=== PATIENT | male | born 1980 | race Caucasian/White ===

== ENCOUNTER → 2023-06-21 | Outpatient (CLI) | payer OTHER ==
--- NOTE | 2023-06-21 11:27 | CA ---
Exercise Nuclear Stress Test Report Name: Mario Patel Exam Date: 06/21/2023 09:43 Exam Location: [facility] Ht (in): 70 Wt (lb): 240 BSA: 2.26 Ordering Phys: Vy Guzman DO Referring Phys: Taylor Jade PAC Technologist: Tay Dempsey Age: 43 Gender: M : 1980 Procedure CPT: Indications: I20.9 ANGINA PECTORIS, UNSPECIFIED; R06.09 ICD-10 Codes: Patient History: Chest pain and shortness of breath Medications: Meds past 24 hrs: Pretest Chest Pain: STRESS TEST Cj Protocol Exercise Duration (min:sec): 10:[address] Depressions (mm): Angina Score: Ramírez Score: Resting HR (bpm): 67 Peak HR (bpm): 168 Resting BP (mmHg): 122 / 73 Peak BP (mmHg): 170 / 58 MPHR: 179 Target HR: 152 % MPHR: 94 METS: 12.1 Total Dose: Peak Dose: Atropine: Double Product: 18820 BP Response: Stress Termination: Reached target heart rate Stress Symptoms: No chest pain or symptoms Stress Summary: ECG ANALYSIS Resting ECG: Normal sinus rhythm normal axis normal intervals Stress ECG: Patient exercised on Cj protocol for 10 and half minutes achieving 85% of predicted maximal heart rate without chest pain at peak exercise there was 1 and have millimeter horizontal ST segment depression noted CONCLUSIONS Good exercise tolerance Moderately abnormal EKG part of the stress test Dr. Barak Jo MD (Electronically Signed) Final Date: 21 June 2023 11:26
--- NOTE | 2023-06-21 12:13 | NM ---
EXAMINATION TYPE: NM stress cardiolite complete DATE OF EXAM: 06/21/2023 COMPARISON: NONE CLINICAL INDICATION: Male, 43 years old with history of I20.9 ANGINA PECTORIS, UNSPECIFIED; R06.09; TECHNIQUE: After the intravenous administration of 9.8 mCi Tc 99m Sestamibi - Rest images obtained 4 5 minutes post injection. The patient exercised using a FIORELLA protocol and 1 minute prior to peak e xercise was injected with 25.0 mCi Tc 99m Sestamibi - Stress images obtained 30 minutes post injectio n. FINDINGS: Targeted heart rate was achieved during performance of the study. Review of stress and rest SPECT lizzy ges demonstrates no distinct perfusion abnormality. Gated analysis shows normal wall motion with an estimated left ventricular ejection fraction of 59 %. IMPRESSION: No scintigraphic evidence for reversible ischemia
== END | disposition home or self-care (01) ==
LOC: RADNMMAIN 07:36
PROVIDERS: ATTEND Family Medicine
DX: I20.9 Angina pectoris, unspecified (principal); R06.09 Other forms of dyspnea; R94.31 Abnormal electrocardiogram [ECG] [EKG]
CPT/HCPCS: 93017; 78452; A9500